=== PATIENT | female | born 1945 | race Caucasian/White ===

== ENCOUNTER 2018-08-03 13:35 | Emergency (ER) | payer MEDICARE, OTHER ==
[~2018-08-03] VITALS: Ht 167.6 cm; Wt 76.7 kg
[2018-08-03] MEDS ORDERED: LIDOCAINE 1%-EPI 1:100,000 20 ML VIAL ONE (13:52)
[2018-08-03] MEDS ORDERED: LIDOCAINE 1%-EPI 1:100,000 20 ML VIAL TP ONE (14:00)
[2018-08-03] MEDS ORDERED: TDAP [DIPH/PERTUSSIS/TET] 0.5 ML VIAL IM ONE ×2 (14:00→14:23)
[2018-08-03 14:25] VITALS: BP 143/69
== END 2018-08-03 14:36 | disposition home or self-care (01) ==
LOC: ER 13:39
DX: S91.312A Laceration without foreign body, left foot, initial encounter (principal); I10 Essential (primary) hypertension; E11.9 Type 2 diabetes mellitus without complications; W26.0XXA Contact with knife, initial encounter; Y93.89 Activity, other specified; Y92.89 Other specified places as the place of occurrence of the external cause; Y99.8 Other external cause status
CPT/HCPCS: 90715; A6402; A6403; J3490

== ENCOUNTER 2018-08-17 18:28 | Emergency (ER) | payer MEDICARE, OTHER ==
[~2018-08-17] VITALS: Ht 152.4 cm; Wt 78.9 kg
[2018-08-17 18:28] VITALS: BP 145/53
== END 2018-08-17 18:54 | disposition home or self-care (01) ==
LOC: ER 18:28
DX: S91.312D Laceration without foreign body, left foot, subsequent encounter (principal); X58.XXXD Exposure to other specified factors, subsequent encounter
CPT/HCPCS: A6402; Z7502

== ENCOUNTER 2019-07-14 19:16 | Emergency (ER) | payer MEDICARE, OTHER ==
[~2019-07-14] VITALS: Ht 152.4 cm; Wt 73.5 kg
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
--- NOTE | 2019-07-14 19:33 | NUR ---
DR GARCIA IS AT THE BEDSIDE SPEAKING TO THE PT AND HER DAUGHTER.
[2019-07-14] MEDS ORDERED: BACI/NEOM/POLY B OINT PKT 1 UDPKT PACKET ONE (19:50)
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
[2019-07-14 19:59] VITALS: BP 135/67
[2019-07-14] MEDS ORDERED: NEOMY SULF/BACITRAC ZN/POLY 15 GM TUBE TP ONE (20:00)
== END 2019-07-14 19:59 | disposition home or self-care (01) ==
LOC: ER 19:16
DX: T22.212A Burn of second degree of left forearm, initial encounter (principal); I10 Essential (primary) hypertension; E11.9 Type 2 diabetes mellitus without complications; D64.9 Anemia, unspecified; E78.00 Pure hypercholesterolemia, unspecified; M19.90 Unspecified osteoarthritis, unspecified site; Z60.2 Problems related to living alone; X10.0XXA Contact with hot drinks, initial encounter; Y93.89 Activity, other specified; Y92.89 Other specified places as the place of occurrence of the external cause; Y99.8 Other external cause status

== ENCOUNTER 2022-01-21 12:18 | Emergency (ER) | payer MEDICARE, OTHER ==
[~2022-01-21] VITALS: Ht 154.9 cm; Wt 69.9 kg
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
--- NOTE | 2022-01-21 12:35 | NUR ---
SEEN BY DR KERR
[2022-01-21 13:17] VITALS: BP 125/82
--- NOTE | 2022-01-21 13:17 | NUR ---
Patient discharged to home in stable condition. Written and verbal after care instructions given. Patient verbalizes understanding of instruction.
== END 2022-01-21 13:18 | disposition home or self-care (01) ==
LOC: ER 12:32
DX: S61.412A Laceration without foreign body of left hand, initial encounter (principal); I10 Essential (primary) hypertension; E11.9 Type 2 diabetes mellitus without complications; M19.90 Unspecified osteoarthritis, unspecified site; E78.00 Pure hypercholesterolemia, unspecified; Z60.2 Problems related to living alone; X58.XXXA Exposure to other specified factors, initial encounter; Y93.89 Activity, other specified; Y92.89 Other specified places as the place of occurrence of the external cause; Y99.8 Other external cause status